=== PATIENT | male | born 1945 | race African-American/Black ===

== ENCOUNTER 2016-11-11 06:31 | Inpatient (IN) | payer MEDICARE ==
[~2016-11-11] VITALS: Ht 185.4 cm; Wt 65.5 kg
[2016-11-11] VITALS (17 sets, daily range): BP systolic 135–196; BP diastolic 73–92
[~2016-11-11 06:31] MED LIST: AMITRIPTYLIN25 MG PO; AMLODIPINE5 MG PO; BAYER ASPIRIN E81 MG PO; CARVEDILOL3.125 MG PO; CARVEDILOL6.25 MG PO; CLOPIDOGREL75 MG PO; COQ-10200 MG PO; DEXILANT30 MG PO; FLOMAX0.4 M1 PO; HYDROCHLOROT25 MG PO; LIPITOR40 M1 PO; LISINOPRIL5 MG PO; LOSARTAN POT100 MG PO; LOSARTAN POT25 MG PO; NAPROXEN250 MG PO; NEXIUM 24HR20 MG PO; PRAVASTATIN40 MG PO; PRILOSEC20 MG PO; PROTONIX40 M2 PO; ROBAXIN-750750 MG OR; SYMBICORT 80-4.5MCG INHW/SPAC; TESSALON PER100 MG PO; TORADOL OR; ULTRAM50 M1 PO; VITAMIN B-121000 MC1 SL; ZITHROMAX250 MG PO
[2016-11-11 07:00] LABS: HEMATOCRIT 40.8 % (39.0-50.0); HEMOGLOBIN 12.6 g/dl (14.0-18.0); IMMATURE GRANULOCYTES 0.2 % (0.0-1.0); MEAN CELL VOLUME 80.2 fL CALC (80.0-100.0); MEAN CORPUSCULAR HGB 24.8 pG CALC (26.0-32.0); MEAN CORPUSCULAR HGB CONC 30.9 g/L CALC (32.0-36.0); NEUT# 2.05 thou/uL (1.82-7.42); RED BLOOD COUNT 5.09 mill/uL (4.70-6.10); RED CELL DISTRI WIDTH 17.2 % (11.5-15.5)
[2016-11-11 07:13] LABS: ALBUMIN 4.1 g/dL (3.2-5.0); ALKALINE PHOSPHATASE 84 u/l (38-126); ANION GAP 14 (6-22 (CALC)); BILIRUBIN, TOTAL 0.5 mg/dL (0.0-1.4); BUN 18 mg/dL (8-23); BUN/CREATININE RATIO 15 (12-20 (CALC)); CALCIUM 10.2 mg/dL (8.4-10.2); CARBON DIOXIDE 26 mmol/l (22-30); CHLORIDE 106 mmol/l (95-108); CREATININE 1.2 mg/dL (0.7-1.3); GFR 60 ML/MIN (>=60 (CALC)); GFR FOR AFR.AMER. > 60 ML/MIN (>=60 (CALC)); GLUCOSE 108 mg/dL (82-115); POTASSIUM 3.7 mmol/l (3.5-5.1); SGOT/AST 23 u/l (19-48); SGPT/ALT 31 u/l (11-66); SODIUM 142 mmol/l (137-146); TOTAL PROTEIN 7.7 g/dL (6.3-8.2)
[2016-11-11 07:25] LABS: MYOGLOBIN 29 ng/mL (0 - 121)
[2016-11-11 07:32] LABS: URINE BILIRUBIN - DIPSTICK NEGATIVE (NEGATIVE); URINE BLOOD DIPSTICK NEGATIVE (NEGATIVE); URINE CLARITY CLEAR; URINE COLOR YELLOW; URINE GLUCOSE - DIPSTICK NEGATIVE (NEGATIVE); URINE KETONE NEGATIVE (NEGATIVE); URINE LEUK ESTERASE NEGATIVE (NEGATIVE); URINE NITRITE - DIPSTICK NEGATIVE (Negative); URINE PH 6.5 (4.5-8.0); URINE PROTEIN - DIPSTICK NEGATIVE (NEG-TRACE); URINE SPECIFIC GRAVITY <=1.005; URINE UROBILINOGEN - DIPSTICK 0.2 E.U./dL (0.2)
[2016-11-11] MEDS ORDERED: AMITRIPTYLIN25 MG PO (08:58)
[2016-11-11] MEDS ORDERED: TOVIAZ4 MG PO (08:59)
[2016-11-12] VITALS (11 sets, daily range): BP systolic 115–164; BP diastolic 61–86
[2016-11-12 04:44] LABS: HEMATOCRIT 41.6 % (39.0-50.0); HEMOGLOBIN 12.9 g/dl (14.0-18.0); MEAN CELL VOLUME 80.2 fL CALC (80.0-100.0); MEAN CORPUSCULAR HGB 24.9 pG CALC (26.0-32.0); NEUT# 2.04 thou/uL (1.82-7.42); RED BLOOD COUNT 5.19 mill/uL (4.70-6.10); RED CELL DISTRI WIDTH 17.2 % (11.5-15.5)
[2016-11-12 05:01] LABS: ANION GAP 14 (6-22 (CALC)); BUN 13 mg/dL (8-23); BUN/CREATININE RATIO 12 (12-20 (CALC)); CALCIUM 9.7 mg/dL (8.4-10.2); CARBON DIOXIDE 28 mmol/l (22-30); CHLORIDE 103 mmol/l (95-108); CREATININE 1.1 mg/dL (0.7-1.3); GFR > 60 ML/MIN (>=60 (CALC)); GFR FOR AFR.AMER. > 60 ML/MIN (>=60 (CALC)); GLUCOSE 94 mg/dL (82-115); POTASSIUM 4.2 mmol/l (3.5-5.1); SODIUM 140 mmol/l (137-146)
[2016-11-13 03:50] VITALS: BP 129/71
[2016-11-13 08:16] VITALS: BP 124/75
[2016-11-13 12:25] VITALS: BP 140/71
[2016-11-13 15:39] VITALS: BP 113/65
== END 2016-11-13 18:03 | disposition short-term general hospital (02) | DRG 201 ==
LOC: ED 06:31 → ED-I 06:51 → ED 09:54 → ICU 09:55 → MS2 09:55
PROVIDERS: ADMIT Internal Medicine; ATTEND Internal Medicine
PROC: 0W9930Z Drainage of Right Pleural Cavity with Drainage Device, Percutaneous Approach (ICD-10-PCS; principal; 2016-11-11)
DX: J93.83 Other pneumothorax (principal); I10 Essential (primary) hypertension; J43.9 Emphysema, unspecified; I25.10 Atherosclerotic heart disease of native coronary artery without angina pectoris; Z87.891 Personal history of nicotine dependence; Z87.11 Personal history of peptic ulcer disease; Z95.5 Presence of coronary angioplasty implant and graft
CPT/HCPCS: J1650; S0164

== ENCOUNTER 2017-06-04 12:23 | Emergency (ER) | payer MEDICARE ==
[~2017-06-04] VITALS: Ht 185.4 cm; Wt 62.0 kg
[~2017-06-04 12:23] MED LIST changes: +TOVIAZ4 MG PO; +VITAMIN B-121000 MC1 PO; -VITAMIN B-121000 MC1 SL
[2017-06-04] MEDS ORDERED: PLAVIX75 MG PO (12:31)
[2017-06-04] MEDS ORDERED: DOXYCYCLINE100 MG PO (12:53)
[2017-06-04 13:08] VITALS: BP 149/86
== END 2017-06-04 13:08 | disposition home or self-care (01) ==
LOC: ED 12:23
DX: L03.114 Cellulitis of left upper limb (principal); I10 Essential (primary) hypertension; K21.9 Gastro-esophageal reflux disease without esophagitis

== ENCOUNTER 2017-11-13 06:58 | Day surgery (SDC) | payer MEDICARE ==
[~2017-11-13] VITALS: Ht 180.3 cm; Wt 61.7 kg
[~2017-11-13 06:58] MED LIST changes: +AMLODIPINE2.5 MG PO; +BRILINTA90 MG PO; +COQ-10100 MG PO; -COQ-10200 MG PO; +DOXYCYCLINE100 MG PO; +NITROSTAT0.4 MG SL; +PLAVIX75 MG PO; +TRAMADOL HYDROC50 MG PO
[2017-11-13 09:33] VITALS: BP 97/67
== END 2017-11-13 10:00 | disposition home or self-care (01) ==
LOC: ENDO 06:58 → ORM 07:30 → ENDO 08:00 → ORM 08:15 → ENDO 08:30
PROVIDERS: ATTEND Internal Medicine Gastroenterology
PROC: 0DB48ZX Excision of Esophagogastric Junction, Via Natural or Artificial Opening Endoscopic, Diagnostic (ICD-10-PCS; principal; 2017-11-13)
PROC: 0DBN8ZX Excision of Sigmoid Colon, Via Natural or Artificial Opening Endoscopic, Diagnostic (ICD-10-PCS; 2017-11-13)
DX: D50.9 Iron deficiency anemia, unspecified (principal); K59.00 Constipation, unspecified; K21.9 Gastro-esophageal reflux disease without esophagitis; Q40.2 Other specified congenital malformations of stomach; K29.50 Unspecified chronic gastritis without bleeding; K63.5 Polyp of colon; K64.4 Residual hemorrhoidal skin tags; Q43.8 Other specified congenital malformations of intestine; K64.8 Other hemorrhoids

== ENCOUNTER 2018-06-18 11:18 | Day surgery (SDC) | payer MEDICARE ==
[~2018-06-18] VITALS: Ht 182.9 cm; Wt 64.4 kg
[~2018-06-18 11:18] MED LIST changes: +CRESTOR40 MG PO; +DIMETAP4 PO; +FERROUS SULF325 M2 PO; +LATANOPROST0.005 % OU; +OXYBUTYNIN5 M1 PO; +PANTOPRAZOLE SO40 MG PO; +SUCRALFATE1 GM PO
[2018-06-18 15:17] VITALS: BP 155/84
== END 2018-06-18 15:30 | disposition home or self-care (01) ==
LOC: ENDO 11:18 → ORM 15:55
PROVIDERS: ATTEND Internal Medicine Gastroenterology
PROC: 0D758ZZ Dilation of Esophagus, Via Natural or Artificial Opening Endoscopic (ICD-10-PCS; principal; 2018-06-18)
PROC: 0DB58ZX Excision of Esophagus, Via Natural or Artificial Opening Endoscopic, Diagnostic (ICD-10-PCS; 2018-06-18)
DX: K22.2 Esophageal obstruction (principal); K21.9 Gastro-esophageal reflux disease without esophagitis; K29.70 Gastritis, unspecified, without bleeding; Q40.2 Other specified congenital malformations of stomach; D50.9 Iron deficiency anemia, unspecified; K59.00 Constipation, unspecified; K64.8 Other hemorrhoids; R19.5 Other fecal abnormalities; I10 Essential (primary) hypertension; I25.10 Atherosclerotic heart disease of native coronary artery without angina pectoris; E78.00 Pure hypercholesterolemia, unspecified; I25.2 Old myocardial infarction; Z95.5 Presence of coronary angioplasty implant and graft; Z86.010 Personal history of colon polyps

== ENCOUNTER 2018-07-31 08:27 | Emergency (ER) | payer MEDICARE ==
[~2018-07-31] VITALS: Ht 182.9 cm; Wt 136.0 kg
[2018-07-31 09:10] LABS: HEMATOCRIT 43.9 % (39.0-50.0); IMMATURE GRANULOCYTES 0.2 % (0.0-5.0); MEAN CELL VOLUME 84.3 fL CALC (80.0-100.0); MEAN CORPUSCULAR HGB 26.9 pG CALC (26.0-32.0); MEAN CORPUSCULAR HGB CONC 31.9 g/L CALC (32.0-36.0); NEUT# 1.45 thou/uL (1.82-7.42); RED BLOOD COUNT 5.21 mill/uL (4.70-6.10); RED CELL DISTRI WIDTH 16.6 % (11.5-15.5)
[2018-07-31 09:26] LABS: ANION GAP 11 (6-22 (CALC)); BUN 14 mg/dL (8-23); BUN/CREATININE RATIO 11 (12-20 (CALC)); CARBON DIOXIDE 26 mmol/l (22-30); CHLORIDE 108 mmol/l (95-108); CREATININE 1.3 mg/dL (0.7-1.3); GFR 54 ML/MIN (>=60 (CALC)); GFR FOR AFR.AMER. > 60 ML/MIN (>=60 (CALC)); POTASSIUM 3.3 mmol/l (3.5-5.1); SODIUM 142 mmol/l (137-146)
[2018-07-31] MEDS ORDERED: ENTRESTO 49-511 TAB PO (10:05)
[2018-07-31 10:51] VITALS: BP 179/82
== END 2018-07-31 10:51 | disposition short-term general hospital (02) ==
LOC: ED 08:27
PROVIDERS: Family Medicine
DX: I21.4 Non-ST elevation (NSTEMI) myocardial infarction (principal)
CPT/HCPCS: J1644

== ENCOUNTER → 2018-09-02 | Outpatient (REF) | payer MEDICARE ==
[~2018-09-02] MED LIST changes: +ENTRESTO 49-511 TAB PO
[2018-09-02 09:52] LABS: ALBUMIN 4.2 g/dL (3.2-5.0); ALKALINE PHOSPHATASE 65 u/l (38-126); ANION GAP 12 (6-22 (CALC)); BILIRUBIN, TOTAL 0.7 mg/dL (0.0-1.4); BUN 11 mg/dL (8-23); BUN/CREATININE RATIO 9 (12-20 (CALC)); CARBON DIOXIDE 29 mmol/l (22-30); CHLORIDE 102 mmol/l (95-108); CREATININE 1.2 mg/dL (0.7-1.3); GFR 59 ML/MIN (>=60 (CALC)); GFR FOR AFR.AMER. > 60 ML/MIN (>=60 (CALC)); POTASSIUM 3.9 mmol/l (3.5-5.1); SGOT/AST 26 u/l (19-48); SODIUM 139 mmol/l (137-146); TOTAL PROTEIN 6.9 g/dL (6.3-8.2)
[2018-09-02 10:25] LABS: TSH, 3RD GENERATION 2.21 uIU/mL (0.47 - 4.68)
== END | disposition home or self-care (01) ==
LOC: LAB 08:35
PROVIDERS: ATTEND Internal Medicine Cardiovascular Disease
DX: E78.00 Pure hypercholesterolemia, unspecified (principal); I25.119 Atherosclerotic heart disease of native coronary artery with unspecified angina pectoris; D64.9 Anemia, unspecified; I10 Essential (primary) hypertension; R53.83 Other fatigue

== ENCOUNTER 2022-04-14 14:53 | Emergency (ER) | payer MEDICARE ==
[~2022-04-14] VITALS: Ht 182.9 cm; Wt 60.2 kg
[2022-04-14] MEDS ORDERED: KEFLEX500 MG PO (18:11)
[2022-04-14] MEDS ORDERED: CIPROFLOXACN500 MG PO (18:11)
[2022-04-14 18:22] VITALS: BP 149/89
== END 2022-04-14 18:50 | disposition home or self-care (01) ==
LOC: ED 14:53
DX: S91.332A Puncture wound without foreign body, left foot, initial encounter (principal); W45.0XXA Nail entering through skin, initial encounter

== ENCOUNTER 2022-10-27 08:59 | Day surgery (SDC) | payer MEDICARE ==
[~2022-10-27] VITALS: Ht 182.9 cm; Wt 59.9 kg
[~2022-10-27 08:59] MED LIST changes: +CIPROFLOXACN500 MG PO; +FINASTERIDE5 MG PO; +KEFLEX500 MG PO; +NORVASC PO; +SOLIFENACIN SUCC5 MG PO; +TAMSULOSIN HCL0.4 MG PO
[2022-10-27 12:42] VITALS: BP 134/85
== END 2022-10-27 12:55 | disposition home or self-care (01) ==
LOC: ENDO 08:59 → ORM 09:00 → ENDO 12:55 → ORM 13:10
PROVIDERS: ATTEND Internal Medicine Gastroenterology
PROC: 0DBE8ZX Excision of Large Intestine, Via Natural or Artificial Opening Endoscopic, Diagnostic (ICD-10-PCS; principal; 2022-10-27)
PROC: 0DB98ZX Excision of Duodenum, Via Natural or Artificial Opening Endoscopic, Diagnostic (ICD-10-PCS; 2022-10-27)
PROC: 0DB78ZX Excision of Stomach, Pylorus, Via Natural or Artificial Opening Endoscopic, Diagnostic (ICD-10-PCS; 2022-10-27)
PROC: 0DB48ZX Excision of Esophagogastric Junction, Via Natural or Artificial Opening Endoscopic, Diagnostic (ICD-10-PCS; 2022-10-27)
DX: Z12.11 Encounter for screening for malignant neoplasm of colon (principal); K64.8 Other hemorrhoids; K21.00 Gastro-esophageal reflux disease with esophagitis, without bleeding; K29.50 Unspecified chronic gastritis without bleeding; Z86.010 Personal history of colon polyps